=== PATIENT | female | born 1950 | race Caucasian/White ===

== ENCOUNTER 2019-08-06 08:53 | Day surgery (SDC) | payer OTHER ==
[2019-08-03 11:52] VITALS: BMI 24.8
[2019-08-06 09:07] VITALS: TEMP 98.4
[2019-08-06 13:45] VITALS: BP 129/80; PULSE 61
--- NOTE | 2019-08-09 16:25 | PATH ---
Surgical Pathology Report Patient Name: CONNER SAAVEDRA [facility]. Rec. #: [id number] /Age/Gender: 1950 (Age: 68) / F Account: [id number] Location: [facility] Taken: 08/06/2019 Received: 08/06/2019 Reported: 08/09/2019 Physicians: William Piña M.D. Specimen(s) Received A: BIOPSY POLYP SPLENIC FLEXURE B: POLYPECTOMY DISTAL SIGMOID COLON Clinical History Colon, polyps, diverticulosis Final Diagnosis A. SPLENIC FLEXURE, POLYP, BIOPSY: TUBULAR ADENOMA. B. DISTAL SIGMOID COLON, POLYP, HOT SNARE POLYPECTOMY: TUBULAR ADENOMA. Electronically Signed Josefina Kebede M.D. Gross Description A. Received in formalin, labeled "polyp, splenic flexure" is a mosher, irregular portion of soft tissue measuring 0.2 cm. in greatest dimension. The specimen is submitted in toto in one cassette. B. received in formalin, labeled, "snare polypectomy distal sigmoid colon" is a 1.2 x 0.6 x 0.3 cm dark mosher polyp with a 0.3 cm stalk. The base of the stalk is inked black. The polyp is bisected and submitted in toto in one cassette. AE/08/07/2019 ebram/08/07/2019
== END 2019-08-06 12:40 | disposition home or self-care (01) ==
LOC: FASU-ENDO 08:53
PROVIDERS: ATTEND Internal Medicine Gastroenterology
PROC: 0DBL8ZX Excision of Transverse Colon, Via Natural or Artificial Opening Endoscopic, Diagnostic (ICD-10-PCS; 2019-08-06)
PROC: 0DBN8ZX Excision of Sigmoid Colon, Via Natural or Artificial Opening Endoscopic, Diagnostic (ICD-10-PCS; principal; 2019-08-06 10:41)
DX: Z12.11 Encounter for screening for malignant neoplasm of colon (principal); D12.3 Benign neoplasm of transverse colon; D12.5 Benign neoplasm of sigmoid colon; K57.30 Diverticulosis of large intestine without perforation or abscess without bleeding